=== PATIENT | male | born 1970 | race Caucasian/White ===

== ENCOUNTER 2016-09-17 17:41 | Emergency (ER) | payer BC ==
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
[2016-09-17] MEDS ORDERED: HYDROcodone/ACETAMIN 5-325 MG* 1 TAB PO ONE (18:26)
[2016-09-17] MEDS ORDERED: HYDROcodone/ACETAMIN 5-325 MG* 1 TAB ONE (18:32)
[2016-09-17 18:42] VITALS: BP 137/91
== END 2016-09-17 18:43 | disposition home or self-care (01) ==
LOC: UCCORT 17:41
DX: T22.212A Burn of second degree of left forearm, initial encounter (principal); T23.262A Burn of second degree of back of left hand, initial encounter; T31.0 Burns involving less than 10% of body surface; X10.2XXA Contact with fats and cooking oils, initial encounter; Y93.G3 Activity, cooking and baking; Y92.9 Unspecified place or not applicable
CPT/HCPCS: 99202; G0463